=== PATIENT | female | born 1980 | race Caucasian/White ===

== ENCOUNTER 2018-05-08 08:56 | Day surgery (SDC) | payer OTHER ==
[2018-05-08] VITALS (11 sets, daily range): BP systolic 95–112; BP diastolic 54–65; PULSE 60–72; RESP 13–25
[~2018-05-08] VITALS: Ht 152.4 cm; Wt 72.3 kg
[~2018-05-08 08:56] MED LIST: CYCLOPENTOLATE 1% 2 ML OPH OPER SCH; DICLOFENAC 0.1% 2.5 ML OPH OPER SCH; LACTATED RINGER'S 1,000 ML IV* SCH; MOXIFLOXACIN 0.5% 3 ML OPH OPER SCH; PHENYLephrine 2.5% 15 ML OPH OPER SCH
[2018-05-08] MEDS: TROPICAMIDE 1% 15 ML OPH OPER SCH ×2 (09:53→11:33)
--- NOTE | 2018-05-08 10:51 | HPN ---
Date/Time of Note Date/Time of Note DATE: 05/08/18 TIME: 10:51 Interval H&P Admission Note Pt. seen H&P reviewed: No system changes LUZ HILL May 08, 2018 10:51
--- NOTE | 2018-05-08 10:58 | PREAC ---
Date/Time of Note Date/Time of Note DATE: 05/08/18 TIME: 10:57 Anesthesia Eval and Record Evaluation Time Pre-Procedure Interview DATE: 05/08/18 TIME: 10:57 Age 37 Sex female NPO: 8 hrs Preoperative diagnosis right cataract Planned procedure right cataract extraction and iol placement Past Medical History Past Medical History: Includes GI: Obesity Surgery & Anesthesia Issues No known issue Meds Anticoagulation: No Beta Valentina within 24 hr: No Reason Beta Valentina not given: Pt. not on B-Valentina No Active Prescriptions or Reported Meds Current Medications Cyclopentolate HCl (Ak-Pentolate 1% Oph) 1 drop Q5 MIN X 3 OPER Last administered on 05/08/18at 09:54; Admin Dose 1 DROP; Start 05/08/18 at 06:00; Stop 05/08/18 at 18:00 Diclofenac Sodium (Voltaren 0.1%) 1 drop Q5 MIN X 3 OPER ; Start 05/08/18 at 06:00; Stop 05/08/18 at 18:00 Moxifloxacin HCl (Vigamox) 1 drop Q5 MIN X 3 OPER ; Start 05/08/18 at 06:00; St op 05/08/18 at 18:00 Phenylephrine HCl (Ak-Dilate 2.5%) 1 drop Q5 MIN X 3 OPER Last administered on 05/08/18at 09:53; Admin Dose 1 DROP; Start 05/08/18 at 06:00; Stop 05/08/18 at 18:00 Tropicamide (Mydriacyl 1%) 1 drop Q5 MIN X3 OPER Last administered on 05/08/18at 09:53; Admin Dose 1 DROP; Start 05/08/18 at 06:00; Stop 05/08/18 at 18:00 Lactated Ringer's 1,000 ml @ 25 mls/hr Q24H IV* ; Start 05/08/18 at 06:00; Stop 05/08/18 at 18:00 Meds reviewed: Yes Allergies Coded Allergies: No Known Allergy (Unverified , 05/08/18) Allergies Reviewed: Yes Labs/Studies Labs Reviewed: Reviewed by anesthesiologist test: Negative Pre-procedure Exam Last vitals Vital Signs Date Temp Pulse Resp B/P (MAP) Pulse Ox O2 O2 Flow FiO2 Time Delivery Rate 05/08/18 98.0 72 18 107/57 98 Room Air 09:57 (74) Airway: Adequate mouth opening, Adequate thyromental dist Mallampati: Mallampati II Teeth: Normal Lung: Normal Heart: Normal ASA Physical Status ASA physical status: 2 Emergency: None Planned Anesthetic General/MAC: MAC Planned Pain Management Parenteral pain med Pre-operative Attestations Prior to commencing anesthesia and surgery, the patient was re-evaluated, there was verification of: *The patient's identity *The results of appropriate recent lab work and preoperative vital signs *The above evaluation not changing prior to induction *Anesthetic plan, risk benefits, alternative and complications discussed with patient/family; questions answered; patient/family understands, accepts and wishes to proceed. Juliano Goodwin M.D. May 08, 2018 10:58
[2018-05-08] MEDS ORDERED: ALBUTEROL 0.083% (NEB) 2.5 MG/3 ML AMP HHN PRN (11:00)
[2018-05-08] MEDS ORDERED: TRIMETHOBENZAMIDE 100 MG/ML VIAL IM PRN (11:00)
[2018-05-08] MEDS ORDERED: ONDANSETRON 4 MG INJ IV PRN (11:00)
[2018-05-08] MEDS ORDERED: LABETALOL HCL 20MG INJ IV PRN (11:00)
[2018-05-08] MEDS ORDERED: MEPERIDINE 25 MG INJ IV PRN (11:00)
[2018-05-08] MEDS ORDERED: FENTAnyl 50 MCG/ML VIAL ONE (11:00)
[2018-05-08] MEDS ORDERED: IPRATROPIUM (NEB) 0.5 MG/2.5 ML AMP HHN PRN (11:00)
[2018-05-08] MEDS ORDERED: DIPHENHYDRAMINE 50 MG INJ IV PRN (11:00)
[2018-05-08] MEDS ORDERED: FENTAnyl 50 MCG/ML VIAL IV PRN ×3 (11:00)
[2018-05-08] MEDS ORDERED: OXYCODONE/ACETAMINOPHEN (5/325) TAB PO PRN ×2 (11:00)
[2018-05-08] MEDS ORDERED: MIDAZOLAM 1 MG/ML 2 ML INJ IV PRN (11:00)
[2018-05-08] MEDS ORDERED: hydrALAzine 20 MG INJ IV PRN (11:00)
[2018-05-08] MEDS ORDERED: HYDROmorphONE 1 MG/5 ML IV SYRINGE IV PRN ×3 (11:00)
[2018-05-08] MEDS ORDERED: EPHEDrine SULFATE 50 MG/5 ML SYG IV PRN (11:00)
[2018-05-08] MEDS ORDERED: ONDANSETRON 4 MG INJ ONE (11:02)
--- NOTE | 2018-05-08 11:53 | PAC ---
Date/Time of Note Date/Time of Note DATE: 05/08/18 TIME: 11:53 Post-Anesthesia Notes Post-Anesthesia Note Last documented vital signs Vital Signs Date Temp Pulse Resp B/P (MAP) Pulse Ox O2 O2 Flow FiO2 Time Delivery Rate 05/08/18 98.0 72 18 107/57 98 Room Air 09:57 (74) Activity: WNL Respiratory function: WNL Cardiovascular function: WNL Mental status: Baseline Pain reasonably controlled: Yes Hydration appropriate: Yes Nausea/Vomiting absent: Yes ASIM JULIEN May 08, 2018 11:53
--- NOTE | 2018-05-08 11:58 | OPR ---
Date/Time of Note Date/Time of Note DATE: 05/08/18 TIME: 11:50 Operative Report Free Text/Dictation Date of Surgery: 05/08/2018 Surgeon: Luz Hill MD PreOp Diagnosis: Posterior subcapsular cataract, right eye PostOp Diagnosis: Same Implant: [id number] 16.5D Procedures: 1. Phacoemulsification and extraction of lens, right eye 2. Intraocular lens implantation, right eye Anesthesia: Monitored anesthesia care with topical anesthesia Complications: None Estimated blood loss: <1mL Description of Procedure: The patient suffers from a visually significant cataract of the right eye. After discussing the option of cataract surgery, including the risks and benefits, the patient voiced understanding and elected to proceed today. The patient was identified in the pre-op holding area where the right eye was marked. The patient was then brought to the operating room where a time out was called, identifying the patient, the procedure, and the correct site. Tetracaine eye drops were applied. The right eye was then prepped and draped in usual sterile ophthalmic fashion. An eyelid speculum was placed into the operative eye. A paracentesis was made superiorly with a side port blade. 1% preservative free lidocaine was injected into the anterior chamber. Next, Viscoat was injected to deepen the anterior chamber. A 2.4 mm keratome was used to create a temporal corneal wound. A continuous curvilinear capsulorrhexis was started with a bent cystitome and c ompleted with Utrata forceps. Hydrodileation was perfomed. The nucleus was split into two pieces with a [id number] technique and removed with phacoemulsification. Remaining residual cortex was removed with irrigation and aspiration. Provisc was injected into the anterior chamber. The posterior lens capsule was noted to be intact. Viscoat was used to inflate the capsular bag. The lens was injected into the capsular bag. Viscoelastic was removed with irrigation and aspiration. The anterior chamber was filled with BSS to physiologic pressure and the wounds were hydrated and watertight. The eyelid speculum was removed and a drop of timolol and tobradex ointment were placed into the eye. A syed shield was placed over the operative eye. The patient tolerated the procedure well and was in stable condition on the way to the recovery room. LUZ HILL May 08, 2018 11:58
[2018-05-08] MEDS ORDERED: ACETAMINOPHEN 325 MG TAB PO ONE (14:00)
== END 2018-05-08 14:15 | disposition home or self-care (01) ==
LOC: SDS 08:56
PROVIDERS: ATTEND Ophthalmology
DX: H25.041 Posterior subcapsular polar age-related cataract, right eye (principal); E66.9 Obesity, unspecified; Z68.31 Body mass index [BMI] 31.0-31.9, adult
CPT/HCPCS: 66984; 84703; J2405; J3010; V2632

== ENCOUNTER 2018-06-19 10:23 | Day surgery (SDC) | payer OTHER ==
[~2018-06-19] VITALS: Ht 152.4 cm; Wt 70.5 kg
[2018-06-19] VITALS (11 sets, daily range): BP systolic 85–101; BP diastolic 48–61; PULSE 54–66; RESP 10–20; Ht 152.4 cm; Wt 70.5 kg
[~2018-06-19 10:23] MED LIST changes: -DICLOFENAC 0.1% 2.5 ML OPH OPER SCH; -LACTATED RINGER'S 1,000 ML IV* SCH; +NEPAFENAC 0.1% 3 ML OPH OPER SCH; +TROPICAMIDE 1% 15 ML OPH OPER SCH
[2018-06-19] MEDS ORDERED: LIDOCAINE 1% (MPF) 10 ML INJ INJ ONE (11:45)
[2018-06-19] MEDS ORDERED: TETRACAINE 0.5% 4 ML OPH LEFT EYE ONE (11:45)
[2018-06-19] MEDS ORDERED: TIMOLOL MALEATE/PF 0.5% OCCUDOSE (0.3 ML) ONE (11:47)
[2018-06-19] MEDS ORDERED: EPINEPHrine 1 MG INJ ONE (11:47)
[2018-06-19] MEDS ORDERED: TOBRAMYCIN/DEXAMETH 3.5 GM OPH OINT ONE (11:47)
[2018-06-19] MEDS ORDERED: LIDOCAINE 1% (MPF) 10 ML INJ ONE (11:47)
--- NOTE | 2018-06-19 11:51 | HPN ---
Date/Time of Note Date/Time of Note DATE: 06/19/18 TIME: 11:51 Interval H&P Admission Note Pt. seen H&P reviewed: No system changes LUZ HILL Jun 19, 2018 11:51
--- NOTE | 2018-06-19 11:55 | PREAC ---
Date/Time of Note Date/Time of Note DATE: 06/19/18 TIME: 11:53 Anesthesia Eval and Record Evaluation Time Pre-Procedure Interview DATE: 06/19/18 TIME: 11:53 Age 38 Sex female NPO: 8 hrs Preoperative diagnosis LEFT POSTERIOR SUBCAPSULAR CATARACT Planned procedure LEFT CATARACT EXTRACTION Past Medical History Past Medical History: Includes GI: Obesity Surgery & Anesthesia Issues No known issue Meds Anticoagulation: No Beta Valentina within 24 hr: No Reason Beta Valentina not given: Pt. not on B-Valentina No Active Prescriptions or Reported Meds Current Medications Cyclopentolate HCl (Ak-Pentolate 1% Oph) 1 drop Q 5 MIN X 3 OPER Last administered on 06/19/18at 11:17; Admin Dose 1 DROP; Start 06/19/18 at 06:00; Stop 06/19/18 at 23:00 Phenylephrine HCl (Ak-Dilate 2.5%) 1 drop Q 5 MIN X 3 OPER Last administered on 06/19/18at 11:17; Admin Dose 1 DROP; Start 06/19/18 at 06:00; Stop 06/19/18 at 23:00 Tropicamide (Mydriacyl 1%) 1 drop Q15 MIN X3 OPER Last administered on 06/19/18at 11:17; Admin Dose 1 DROP; Start 06/19/18 at 06:00; Stop 06/19/18 at 23:00 Moxifloxacin HCl (Vigamox) 1 drop Q 5 MIN X 3 OPER Last administered on 06/19/18 11:17; Admin Dose 1 DROP; Start 06/19/18 at 06:00; Stop 06/19/18 at 23:00 Nepafenac ([place] Oph) 1 drop Q 5 MIN X 3 OPER Last administered on 06/19/18 11:17; Admin Dose 1 DROP; Start 06/19/18 at 06:00; Stop 06/19/18 at 23:00 Meds reviewed: Yes Allergies Coded Allergies: No Known Allergy (Unverified , 06/19/18) Allergies Reviewed: Yes Labs/Studies Labs Reviewed: Reviewed by anesthesiologist test: Negative Pre-procedure Exam Last vitals Vital Signs Date Temp Pulse Resp B/P (MAP) Pulse Ox O2 O2 Flow FiO2 Time Delivery Rate 06/19/18 98.3 64 16 98/57 (71) 100 11:30 Airway: Adequate mouth opening, Adequate thyromental dist Mallampati: Mallampati II Teeth: Normal Lung: Normal Heart: Normal ASA Physical Status ASA physical status: 2 Emergency: None Planned Anesthetic General/MAC: MAC Planned Pain Management Parenteral pain med Pre-operative Attestations Prior to commencing anesthesia and surgery, the patient was re-evaluated, there was verification of: *The patient's identity *The results of appropriate recent lab work and preoperative vital signs *The above evaluation not changing prior to induction *Anesthetic plan, risk benefits, alternative and complications discussed with patient/family; questions answered; patient/family understands, accepts and wishes to proceed. Juliano Goodwin M.D. Jun 19, 2018 11:55
[2018-06-19] MEDS ORDERED: TRIMETHOBENZAMIDE 100 MG/ML VIAL IM PRN (12:00)
[2018-06-19] MEDS ORDERED: OXYCODONE/ACETAMINOPHEN (5/325) TAB PO PRN ×2 (12:00)
[2018-06-19] MEDS ORDERED: hydrALAzine 20 MG INJ IV PRN (12:00)
[2018-06-19] MEDS ORDERED: MIDAZOLAM 1 MG/ML 2 ML INJ IV PRN (12:00)
[2018-06-19] MEDS ORDERED: FENTAnyl 50 MCG/ML VIAL IV PRN ×3 (12:00)
[2018-06-19] MEDS ORDERED: IPRATROPIUM (NEB) 0.5 MG/2.5 ML AMP HHN PRN (12:00)
[2018-06-19] MEDS ORDERED: DIPHENHYDRAMINE 50 MG INJ IV PRN (12:00)
[2018-06-19] MEDS ORDERED: ALBUTEROL 0.083% (NEB) 2.5 MG/3 ML AMP HHN PRN (12:00)
[2018-06-19] MEDS ORDERED: ONDANSETRON 4 MG INJ IV PRN (12:00)
[2018-06-19] MEDS ORDERED: EPHEDrine SULFATE 50 MG/5 ML SYG IV PRN (12:00)
[2018-06-19] MEDS ORDERED: LABETALOL HCL 20MG INJ IV PRN (12:00)
[2018-06-19] MEDS ORDERED: HYDROmorphONE 1 MG/5 ML IV SYRINGE IV PRN ×3 (12:00)
[2018-06-19] MEDS ORDERED: MEPERIDINE 25 MG INJ IV PRN (12:00)
[2018-06-19] MEDS ORDERED: FENTAnyl 50 MCG/ML VIAL ONE (12:01)
[2018-06-19] MEDS ORDERED: LIDOCAINE 2% (SDV) 5 ML INJ ONE (12:01)
[2018-06-19] MEDS ORDERED: PROPOFOL 20 ML ONE (12:01)
[2018-06-19] MEDS ORDERED: TOBRAMYCIN/DEXAMETH 3.5 GM OPH OINT LEFT EYE ONE (12:35)
--- NOTE | 2018-06-19 12:46 | PAC ---
Date/Time of Note Date/Time of Note DATE: 06/19/18 TIME: 12:46 Post-Anesthesia Notes Post-Anesthesia Note Last documented vital signs Vital Signs Date Temp Pulse Resp B/P (MAP) Pulse Ox O2 O2 Flow FiO2 Time Delivery Rate 06/19/18 98.3 64 16 98/57 (84) 100 1245 Activity: WNL Respiratory function: WNL Cardiovascular function: WNL Mental status: Baseline Pain reasonably controlled: Yes Hydration appropriate: Yes Nausea/Vomiting absent: Yes Juliano Goodwin M.D. Jun 19, 2018 12:46
--- NOTE | 2018-06-19 12:50 | OPR ---
Date/Time of Note Date/Time of Note DATE: 06/19/18 TIME: 12:45 Operative Report Free Text/Dictation Patient: Pamela Joseph Date of Surgery: 06/19/18 Surgeon: Luz Hill MD PreOp Diagnosis: Posterior subcapsular cataract, left eye PostOp Diagnosis: Same Implant: [id number] 16.5D Procedures: 1. Phacoemulsification and extraction of lens, left eye 2. Intraocular lens implantation, left eye Anesthesia: Monitored anesthesia care with topical anesthesia Complications: None Estimated blood loss: <1mL Description of Procedure: The patient suffers from a visually significant cataract of the left eye. After discussing the option of cataract surgery, including the risks and benefits, the patient voiced understanding and elected to proceed today. The patient was identified in the pre-op holding area where the left eye was marked. Tetracaine eye drops were applied into the operative eye. The patient was sat upright and the 0 and 180 degree positions were marked on the eye. The patient was then brought to the operating room where a time out was called, identifying the patient, the procedure, and the correct site. Tetracaine eye drops were applied. The left eye was then prepped and draped in usual sterile ophthalmic fashion. An eyelid speculum was placed into the operative eye. A paracentesis was made inferiorly with a side port blade. 1% preservative free lidocaine was injected into the anterior chamber. Next, Viscoat was injected to deepen the anterior chamber. A 2.4 mm keratome was used to create a temporal corneal wound. A continuous curvilinear capsulorrhexis was started with a bent cystitome and completed with Utrata forceps. Hydrodelineation was performed with a cannula and BSS. Phacoemulsification of the lens nucleus was accomplished in a [id number] technique. Remaining residual cortex was removed with irrigation and aspiration. The posterior lens capsule was noted to be intact. Provisc was used to inflate the capsular bag. The axis of the patient's astigmatism was marked on the eye. The lens was injected into the capsular bag and rotated until the markings on the lens lined up with the markings on the eye. Viscoelastic was removed with irrigation and aspiration. The anterior chamber was filled with BSS to physiologic pressure and the wounds were hydrated and watertight. The eyelid speculum was removed and tobradex ointment was placed into the eye. A syed shield was placed over the operative eye. The patient tolerated the procedure well and was in stable condition on the way to the recovery room. LUZ HILL Jun 19, 2018 12:50
[2018-06-19] MEDS ORDERED: ACETAZOLAMIDE (SR) 500 MG CAP PO ONE (13:00)
== END 2018-06-19 14:20 | disposition home or self-care (01) ==
LOC: SDS 10:23
PROVIDERS: ATTEND Ophthalmology
DX: H25.042 Posterior subcapsular polar age-related cataract, left eye (principal); E66.9 Obesity, unspecified
CPT/HCPCS: 66984; J0171; J3010